=== PATIENT | female | born 1965 | race Caucasian/White ===

== ENCOUNTER → 2017-09-03 | Outpatient (CLI) | payer BC ==
[~2017-09-03] MED LIST: ALBU1.252 IH; CEPH500C2 PO; DESO1TAB PO; ESOM20CA31 PO; HYDR-4068 PO; IBUP-2076 PO; IOPAMIDOL-370 75 ML VIAL IV ONE; MONT10TA24 PO; ONDA4TAB9 PO
== END | disposition home or self-care (01) ==
LOC: RAH 07:37
PROVIDERS: ATTEND Family Medicine
DX: K46.9 Unspecified abdominal hernia without obstruction or gangrene (principal)
CPT/HCPCS: 74160; Q9967